=== PATIENT | male | born 1970 | race American Indian/Alaskan Native ===

== ENCOUNTER 2024-07-22 09:12 | Emergency (ER) | payer OTHER ==
[2024-07-22] MEDS ORDERED: Sodium Chloride 0.9% 10 ML Syringe FLUSH PRN (09:31)
[2024-07-22] MEDS: Aspirin 81 MG Tab.Chew PO ONE (09:39)
[2024-07-22] MEDS: Tenecteplase 50 MG Kit IV ONE (09:44)
[2024-07-22] MEDS: fentaNYL 100 MCG/2 ML SDV IVPUSH ONE (09:47)
[2024-07-22 09:50] LABS: BASOPHILS ABSOLUTE AUTO 0.1 K/mm3 (0.0-0.2); BASOPHILS PERCENT AUTO 1.3 % (0.0-1.0); EOSINOPHILS ABSOLUTE AUTO 0.2 K/mm3 (0.0-0.4); EOSINOPHILS PERCENT AUTO 3.8 % (0.0-6.0); HEMATOCRIT 52.4 % (42.0-52.0); HEMOGLOBIN 18.2 gm/dl (14.0-18.0); IMMATURE GRAN ABSOLUTE AUTO 0.03 K/mm3 (0.00-0.05); IMMATURE GRAN PERCENT AUTO 0.5 % (0.0-0.4); LYMPHOCYTES ABSOLUTE AUTO 1.9 K/mm3 (1.0-4.8); LYMPHOCYTES PERCENT AUTO 33.9 % (24.0-44.0); MEAN CORPUSCULAR HEMOGLOBIN 27.9 pg (28.0-32.0); MEAN CORPUSCULAR HGB CONC 34.7 g/dl (32.0-36.0); MEAN CORPUSCULAR VOLUME 80.4 fl (83.0-99.0); MONOCYTES ABSOLUTE AUTO 0.3 K/mm3 (0.0-0.8); MONOCYTES PERCENT AUTO 6.1 % (0.0-8.0); NEUTROPHILS PERCENT AUTO 54.4 % (41.0-71.0); PLATELET COUNT,PLT 194 K/mm3 (150-400); RED BLOOD CELL COUNT 6.52 M/mm3 (4.52-5.90); WHITE BLOOD CELL COUNT,WBC 5.55 K/mm3 (3.9-11.3)
[2024-07-22] MEDS: Clopidogrel 75 MG Tab PO ONE (09:53)
[2024-07-22 10:07] LABS: INR 1.02; PROTHROMBIN TIME 10.8 SECONDS (9.7-12.0)
[2024-07-22 10:08] LABS: PTT,PARTIAL THROMBOPLSTIN TIME 25.5 SECONDS (21.7-31.4)
[2024-07-22] MEDS: Sodium Chloride 0.9% 1,000 ML IV ONE (10:09)
[2024-07-22 10:14] LABS: A/G RATIO 0.8 (1-2); ALBUMIN 3.4 g/dl (3.4-5.0); BILIRUBIN TOTAL 0.9 mg/dL (0.2-1.0); ESTIMATED GFR 90 mL/min (>60); SODIUM,NA 131 mEq/L (136-145)
[2024-07-22] MEDS ORDERED: Oxymetazoline 0.05% Nasal Spray 30 ML Bottle ONE (10:16)
[2024-07-22] MEDS: Oxymetazoline 0.05% Nasal Spray 30 ML Bottle NAS ONE (10:29)
[2024-07-22 10:32] LABS: ALKALINE PHOSPHATASE 116 U/L (46-116); ANION GAP 15.4 (5-15); BLOOD UREA NITROGEN,BUN 14 mg/dL (7-18); CALCIUM 8.1 mg/dL (8.5-10.1); CARBON DIOXIDE,CO2 24 mEq/L (21-32); CHLORIDE,CL 96 mEq/L (98-107); EST CRCL DRUG DOSING (CG) 82.65 mL/min
[2024-07-22 10:40] LABS: GLUCOSE RANDOM 442 mg/dL (70-99)
[2024-07-22 10:42] LABS: TROPONIN I HIGH SENSITIVITY 152 pg/mL (<=76)
[2024-07-22 10:44] LABS: POTASSIUM,K 4.4 mEq/L (3.5-5.1)
== END 2024-07-22 10:15 ==
LOC: JD.ED 09:12
DX: I21.4 Non-ST elevation (NSTEMI) myocardial infarction (principal); R73.9 Hyperglycemia, unspecified
CPT/HCPCS: 36415; 71045; 80053; 84484; 85025; 85610; 85730; 96374; 96375; 99285; A9270; J3010; J3101; J7030